=== PATIENT | female | born 1965 ===

== ENCOUNTER 2020-08-03 05:35 | Day surgery (SDC) | payer OTHER ==
[~2020-08-03 05:35] MED LIST: ATORVASTATIN CA10 MG PO; CHLORTHALIDONE25 MG PO; COZAAR100 MG PO; GLIPIZIDE XL10 MG PO; LANTUS SOL100 UNIT/1; METFORMIN HCL750 MG PO; TOPROL XL50 M1 PO
== END 2020-08-03 12:25 | disposition home or self-care (01) ==
LOC: CIR.AMB 05:35
PROVIDERS: ATTEND Surgery Surgery of the Hand
DX: M65.841 Other synovitis and tenosynovitis, right hand (principal); Z20.822 Contact with and (suspected) exposure to COVID-19